=== PATIENT | female | born 1965 | race Caucasian/White ===

== ENCOUNTER → 2017-03-21 | Outpatient (CLI) | payer BC ==
[~2017-03-21] MED LIST: ENDOCET 5-3251 EACH PO; Levothroid,Synthroid PO
== END | disposition home or self-care (01) ==
LOC: NUC 03-17 07:30 → EKG 03-17 09:00 → NUC 03-18 08:00
DX: R93.1 Abnormal findings on diagnostic imaging of heart and coronary circulation (principal); R94.31 Abnormal electrocardiogram [ECG] [EKG]
CPT/HCPCS: 78452; 78999; 93017; A9500; J2785